=== PATIENT | male | born 1945 | race Caucasian/White ===

== ENCOUNTER 2019-03-30 14:04 | Inpatient (IN) ==
[2019-03-30] MEDS ORDERED: *HR* Atropine Sulfate 1 MG/10 ML SYRINGE ONE (14:30)
[2019-03-30] MEDS ORDERED: *HR* Midazolam HCl 2 MG/2 ML VIAL ONE (14:30)
[2019-03-30] MEDS ORDERED: ISOVUE-370 200 ML INFUS..BTL ONE (14:58)
[2019-03-30] MEDS ORDERED: 0.9 % Sodium Chloride 1,000 ML ONE (14:58)
--- NOTE | 2019-03-30 15:36 | Invasive Diagnostic Lab Proc ---
Name: Scooter Medina Date of Study: 03/30/2019 Date: 1945 Ht: 70.0in Medical Record#: [id number] Age: 73 Wt: 214.51lb Gender: Male BSA: 2.15 Order #: [id number] BMI: 30.78 Physicians Procedure Physician: Santana Umanzor MD Referring MD: Referring MD: Staff Name Position Time In ElvajoséAnuradha RN Monitor 02:24 PM Mike Hernandez RN Nurse 02:25 PM Toan Ma RN Social Security Specialist 02:25 PM Curry Encinas RT (R) Scrub 02:25 PM Indications Indication STEMI Procedures Performed Procedure L HRT ARTERY/VENTRICLE ANGIO PRQ CARD REVASC MN 1 VSL Pre-Procedure Checklist Informed consent is complete signed and on chart. H&P is on chart. ID band is on and ID verified with patient. Patient NPO for procedure The procedure was described for the patient and questions were answered. Blood Pressure: 136/72 ECG is on chart. Plan of Care Patient will tolerate the procedure without complications. Adequate level of comfort will be maintained. Hemodynamics will remain stable Patient will recover from procedure without complications. Respiratory function will be maintained. Cardiac rhythm will remain stable. Patient temperature will be maintained. Patient and/or family have verbalized understanding of the procedure. Patient Education Chief Complaint/Reason for Test: Cardiac Cath Developmental Category: Geriatric (65+ years) Developmentally Appropriate for Age: Yes Learning Barriers: None Education Needs: Procedure Education Method: Verbal Information Taught: Cardiac Cath Educational Evaluation: Able to repeat information Intravenous Access Time IV Size Location DC'd Fluid/Drip Rate Units RN 02:24 PM 18g 1 1/4" Patent On Arrival Lt Antecubital 0.9NaCl 100 ml/hr Toan Ma RN 02:24 PM 20g 1 1/4" Patent On Arrival Rt Arm Allergies No Known Allergies Vital Signs Time BP (mmHg) HR (bpm) O2 Sat. RR (bpm) LOC 02:24 PM 136 / 72 71 99 % 18 5 = Fully awake and oriented or at pre-proc level 02:37 PM / % 5 = Fully awake and oriented or at pre-proc level 02:37 PM / % 4 = Oriented but drowsy 02:53 PM / % 4 = Oriented but drowsy 02:40 PM 154 / 81 49 98 % 5 02:45 PM 143 / 74 58 99 % 16 02:50 PM 139 / 76 66 100 % 19 02:55 PM 141 / 70 61 100 % 12 03:00 PM 147 / 76 67 100 % 21 03:05 PM 147 / 75 53 100 % 22 03:10 PM 148 / 80 60 100 % 24 Procedural Medications Time Medication Dose Units Method Given By 02:37 PM Oxygen 2 L/min nasal cannula Toan Ma RN 02:40 PM Versed 2 mg Intravenous Toan Ma RN 02:41 PM Lidocaine 2% 10 ml Subcutaneous Santana Umanzor MD 02:49 PM Heparin 4000 units Intravenous Toan Ma RN 02:57 PM Nitroglycerin 200 mcg Intracoronary Santana Umanzor MD Mayra Score Preprocedure Postprocedure Activity 2- Moves 4 extremities sustained head lift Activity 2- Moves 4 extremities sustained head lift Circulation 2- SBP +/= 20 points of pre-anesthetic level Circulation 2- SBP +/= 20 points of pre-anesthetic level Consciousness 2- Awake and alert oriented x 3 Consciousness 2- Awake and alert oriented x 3 O2 Saturation 2- Able to maintain O2 satruation of 92% on room air O2 Saturation 2- Able to maintain O2 satruation of 92% on room air Respiratory 2- Able to deep breathe and cough well Respiratory 2- Able to deep breathe and cough well Total Score 10 Total Score 10 Contrast Agent: Isovue Diagnostic Contrast: 150 ml Total Contrast: 150 ml Fluoro Dose: 72 mGy Activated Clotting Time Time Seconds to Clot 02:45 PM 152 03:11 PM 207 Procedure Log Time Note Enter By 02:25 PM Anuradha Abebe RN Position: Monitor Time in: 14:24 daniejosé 02:25 PM Mike Hernandez RN Position: Nurse Time in: 14:25 [facility] 02:25 PM Toan Ma RN Position: Social Security Specialist [facility]: [facility] Curry Encinas RT (R) Position: Scrub Time in: 14:25 [facility] 02:25 PM Patient charges- Angio tray pack, Navilyst 3mm J, Pulse Oximetry and ACIST tubing and transducer 02:34 PM Pt arrived to section laborer 2 at 14:34 02:34 PM Meet and grezheng completed 02:34 PM Sign in performed according to hospital policy. Informed consent was obtained. mm 02:34 PM Procedure start 14:34 oumm 02:35 PM CathStat 02:37 PM Hair removed from procedure site in procedure lab using clippers. Bilateral groin prepped with Chloraprep by Toan Ma RN, then patient was draped. Skin intact. mm 02:37 PM Time: 14:37 Oxygen on at 2 L/min per nasal cannula by Toan Ma RN [facility]:37 PM Time: 14:37 Patient comfortable and pain free: Yes mm 02:37 PM Time: 14:37LOC: 5 = Fully awake and oriented or at pre-proc level 02:38 PM Clinical Presentation: STEMI or equivalent 02:39 PM Vitals capture started with the following parameters, Patient=Adult, Interval=5 min, Initial Ojogjupf=904 mmHg, Deflation Rate=5 mmHg, Cuff placed on Right Arm 02:40 PM HR=49 bpm, NOMC=119/81 mmhg, SpO2=98.0 %, Resp=5 B/min, EtCO2=29 mmHg 02:40 PM Time out was performed according to hospital policy. Conscious sedation and anesthesia was achieved (see medication log with in this report above) mm 02:40 PM Time: 14:40 Versed 2 mg Intravenous Given by Toan Ma RN 02:41 PM Recorded ECG: HR=54 Condition=Condition 1 02:42 PM Time: 14:41 10 ml Lidocaine 2% to right groin Subcutaneous Given by Santana Umanzor MD 02:42 PM Pressure channel 2 zeroed. 02:43 PM Access obtained by percutaneous puncture. 6Fr 10cm Terumo [place] sheath placed in right Femoral artery. [id number] mm 02:43 PM 0.035 145cm Navilyst 3mmJ wire [id number] mm 02:43 PM 6Fr FL 4 catheter inserted over the wire [facility] mm 02:43 PM wire removed 02:44 PM LCA angiography performed in multiple views. mm 02:45 PM HR=58 bpm, LJNM=599/74 mmhg, SpO2=99.0 %, Resp=16 B/min, EtCO2=35 mmHg 02:45 PM Recorded Pressure: Ao, HR=59, Condition=Condition 1 (Aorta) Ao 125/54/83 02:45 PM At 14:45 the ACT was 152 seconds. tsoummers 02:45 PM 4000 units of heparin adminsitered BEAN PICKER by [place] ED nurse tsoumm 02:46 PM 0.035 260cm Navilyst 3mmJ wire [id number] tsoummers 02:46 PM Catheter removed tsoumm 02:46 PM 6Fr JR 4 Runway guide catheter was used to cannulate the PCI vessel successfully. reused? No tsoummers 02:46 PM Inflation device was opened. tsoummers 02:47 PM wire removed tsoumm 02:47 PM RCA angiography performed in multiple views. tsoummers 02:48 PM Guide catheter removed intact. tsoummers 02:49 PM 6Fr JR 4 Runway guide catheter was used to cannulate the PCI vessel successfully. reused? No tsoummers 02:49 PM 1st guide catheter had kink tsoumm 02:49 PM Time: 14:49 Heparin 4000 units Intravenous Given by Toan Ma RN tsoumm 02:50 PM HR=66 bpm, WIVI=629/76 mmhg, GjC4=896.0 %, Resp=19 B/min, EtCO2=33 mmHg 02:50 PM Recorded Pressure: Ao, HR=56, Condition=Condition 1 (Aorta) Ao 128/52/81 02:52 PM Coronary Dominance: right tsoumm 02:52 PM Guide catheter removed intact. tsoumm 02:52 PM Sheath exchanged for a 6 Fr 23 cm Cordis Lacy sheath [id number] tsoummers 02:53 PM Time: 14:37LOC: 4 = Oriented but drowsy tsoummers 02:53 PM Time: 14:37 Patient comfortable and pain free: Yes tsoummers 02:55 PM HR=61 bpm, HJXI=381/70 mmhg, AcM9=330.0 %, Resp=12 B/min, EtCO2=32 mmHg 02:55 PM 6Fr JR 4 Runway guide catheter was used to cannulate the PCI vessel successfully. reused? No tsoummers 02:55 PM Recorded Pressure: Ao, HR=66, Condition=Condition 1 (Aorta) Ao 129/54/85 02:57 PM Lesion found in Distal RCA. Pre Stenosis: 95 Pre PARMINDER Flow: 3: Complete and Brisk Flow/Perfusion tsoummers 02:57 PM Right Coronary, Right Posterior Descending Arteries with Right Posterolateral and Acute Marginal branches with 95 % stenosis. If graft is supplying this area, 0 % stenosis tsoummers 02:57 PM Time: 14:57 Nitroglycerin 200 mcg Intracoronary Given by Santana Umanzor MD tsoummers 02:58 PM Recorded Pressure: Ao, HR=74, Condition=Condition 1 (Aorta) Ao 106/50/73 02:58 PM .014 Balance 300cm guide wire across target lesion- successful. reused? No tsoummers 03:00 PM HR=67 bpm, OKST=219/76 mmhg, DbU7=084.0 %, Resp=21 B/min, EtCO2=35 mmHg 03:00 PM 3.0mm x 12mm Synergy drug-eluting stent across target lesion- successful Lot #[id number] tsoummers 03:01 PM Stent deployed @ 13 мария for 30 seconds tsoummers 03:03 PM Recorded Pressure: Ao, HR=53, Condition=Condition 1 (Aorta) Ao 124/54/80 03:04 PM Stent delivery system removed intact. tsoummers 03:04 PM 3.0mm x 12mm Synergy drug-eluting stent across target lesion- successful Lot #[id number] tsoummers 03:05 PM Stent deployed @ 13 мария for 30 seconds tsoummers 03:05 PM HR=53 bpm, XBWT=738/75 mmhg, ViS9=289.0 %, Resp=22 B/min, EtCO2=34 mmHg 03:05 PM Lesion found in Proximal RCA. Pre Stenosis: 75 Pre PARMINDER Flow: 3: Complete and Brisk Flow/Perfusion tsoummers 03:06 PM Stent delivery system removed intact. tsoummers 03:06 PM Guide wire removed intact. tsoummers 03:06 PM Guide catheter removed intact. tsoummers 03:07 PM 5Fr Pigtail catheter inserted over the wire [facility] tsoummers 03:07 PM Catheter crossed the aortic valve and was selectively placed in the left ventricle. Pressures recorded on pullback for left heart catheterization. tsoummers 03:07 PM Bolus angiogram of left Ventricle complete: hand injection tsoummers 03:08 PM Recorded Pressure: LV, HR=68, Condition=Condition 1 (Left Ventricle) LV 125/13/26 03:08 PM Recorded Pressure: LV, HR=68, Condition=Condition 1 (Left Ventricle) LV 137/13/25 03:08 PM Time: 14:53 Patient comfortable and pain free: Yes tsoummers 03:08 PM Time: 14:53LOC: 4 = Oriented but drowsy tsoummers 03:08 PM Recorded Pressure: LV, Ao, HR=58, Condition=Condition 1 (Left Ventricle) LV 127/8/10, (Aorta) Ao 132/46/77 03:09 PM Catheter removed tsoummers 03:09 PM Procedure completed at 15:09 03/30/2019 tsoummers 03:09 PM Did you address PARMINDER flow and Dominance? Yes tsoummers 03:10 PM HR=60 bpm, GJMJ=397/80 mmhg, IuS8=667.0 %, Resp=24 B/min 03:10 PM Sign out completed: Radiation Dose 703.36 mGy, 72.1 Gy/cm2 Fluoro Time: 7.9 Isovue 370 - 200ml contrast 150 ml given by Santana Umanzor MD. Complications: None. The patient was discharged out of the medical laboratory technician in stable condition. Sedation minutes 30. Cardiac Rehab Consult needed: Yes. Confirmed administered medications: Yes tsoummers 03:10 PM Isovue 370 - 200ml,1 Bottle(s) used. tsoummers 03:10 PM Arterial sheath pulled, Perclose closure device used and was Successful [id number] S/N. tsoummers 03:10 PM Estimated Blood Loss: less than 20cc tsoummers 03:10 PM Post Blood Pressure 148/80 tsoummers 03:11 PM Information taught Cardiac Cath, PCI, and Perclose tsoummers 03:11 PM Education needs Procedure, Plan of Care, and Responsibilities of Patient in Care tsoummers 03:11 PM Learning barriers :None tsoummers 03:11 PM Education Methods Verbal tsoummers 03:11 PM Education evaluation Able to repeat information tsoummers 03:11 PM Site status No bleeding/hematoma - Rt Groin as reported by Curry Encinas RT (R) at 15:11 tsoummers 03:11 PM Opsite applied tsoummers 03:11 PM Plavix, Effient or Brilinta given No- 180 mg Brilinta administered in [place] [facility] BEAN PICKER oummers 03:11 PM At 15:11 the ACT was 207 seconds. tsmmers 03:11 PM Family placed in consult room. tsoummers 03:13 PM Post ECG Atrial Fibrillation mm 03:17 PM Report given to juan m TODD Pt taken to ICU Room #10. 15:17 tsoummers 03:21 PM Patient out of room: 15:21 tsoummers 03:22 PM Lesion found in Distal LMCA. Pre Stenosis: 20 Pre PARMINDER Flow: tsoummers 03:22 PM Lesion found in Proximal LAD. Pre Stenosis: 20 Pre PARMINDER Flow: tsoummers 03:22 PM Lesion found in 1st Marginal. Pre Stenosis: 60 Pre PARMINDER Flow: tsoummers 03:22 PM Left Main Coronary Artery with 20% stenosis tsoummers 03:22 PM Proximal Left Anterior Descending Coronary Artery with 20% stenosis. If graft is supplying this territory, 0 % stenosis. mmers 03:22 PM Circumflex, Obtuse Marginal, Left Posterior Descending, and Left Posterolateral Coronary Arteries with 60 % stenosis. If graft is supplying this area, 0 % stenosis tsmmers Complications Complication None Hemodynamics Pressures Site Systolic/A Wave Diastolic/V Wave Mean AO 125 54 83 AO 128 52 81 AO 129 54 85 AO 106 50 73 AO 124 54 80 LV 125 13 26 LV 137 13 25 LV 127 8 10 AO 132 46 77 Post Procedure Information Blood Pressure: 148/80 mmHg Rhythm: Atrial Fibrillation Post procedural instructions were given Closure Device Time Device Success/Fail 03/30/2019 3:10:00 PM Perclose ProGlide Successful Site Checks Time Location Status Staff Sheath In? Note 03:11 PM Rt Groin No bleeding/hematoma Curry Encinas RT (R) Pulses Updated by Anuradha Abebe RN on 03/30/2019 3:25:26 PM electronically signed on 03/30/2019 3:25:44 PM with status of Final
[2019-03-30] MEDS ORDERED: Acetaminophen 325 MG TABLET PO PRN (18:24)
[2019-03-30] MEDS ORDERED: Ondansetron 4 MG/2 ML VIAL IVP PRN (18:29)
--- NOTE | 2019-03-30 18:37 | Internal Med History&Physical ---
Date of Encounter: 03/30/19 Time of Encounter: 18:24 Internal Medicine - H&P: HPI Chief complaint: chest pain Admitted From: Home Plans for Post Hospital Care: Home History of present illness: Mr. Medina is a 73 year old male with past medical history of HTN, current 30 pack year smoker who presents with chest pain. {Pt's sons, sister-in law and another female family member where Pt states his about a week ago which has been stressful. Pt states he developed chest pain about 2am this morning. Reported slight SOB. Family stated he complained that he was sick to his stomach. He was recently prescribed antibiotic by his PCP for upper resp infection. Family history Mother MS and at 51 years old. Father HTN and from CVA when pt was 6 years old. In ED WBC 12.3, hgb 11.9, hct 36.0, plt 253 Na 136, 3.7, BUN 24, Cr 0.98. Troponin 1.02. Initial EKG showed: sinus rhythm, axis, intervals, QRS complexes, ST-T wave. Repeat EKG: demonstrated evidence of inferior MS with ST elevation in leads 2, 3 and aVF. Cardiology was notified and pt was transfered to [facility] for cardiac intervention. Chest x ray XR/XR chest 1V portable IMPRESSION: No acute cardiopulmonary process identified. CODE STATUS: FULL Past Med Surg Social Fam HX - Past Medical History Medical history: aortic aneurysm, coronary artery disease, hypertension, kidney stones, other (Chronic low back pain/sciatica) Additional medical history: lipids Psychiatric history: no psych history - Past Surgical History Surgical History: other (Ureteral stent) Additional surgical history: abdominal stent - Social History Smoking Status: Current every day smoker Smokeless Tobacco Status: No Alcohol use: none Drug use: none Internal Medicine - H&P: Meds Atenolol [Tenormin] 50 mg PO DAILY 03/30/19 [History] Azithromycin [Azithromycin 6-Tab Pack] 250 mg PO PER PKG DI 03/30/19 [History] GuaiFENesin Liq [Robitussin Liq] 200 mg PO Q6HR 03/30/19 [History] Valsartan/Hydrochlorothiazide [Diovan Hct 320-25 mg Tablet] 1 each PO DAILY 03/30/19 [History] amLODIPine [Norvasc] 10 mg PO DAILY 03/30/19 [History] Allergy/AdvReac Type Severity Reaction Status Date / Time No Known Allergies Allergy Verified 03/30/19 13:50 All Systems PM: A 10-system review of systems was performed and is negative for pertinent findings except as documented above in the HPI. - Constitutional Vitals: Temp Pulse Resp BP Pulse Ox 98 F 59 18 199/95 97 03/30/19 15:31 03/30/19 18:00 03/30/19 18:00 03/30/19 18:00 03/30/19 18:00 General appearance: Present: A&O X 3, no acute distress Exam: . - Head Head exam: Present: atraumatic, normocephalic - Eye Eye exam: Present: PERRL, conjuntiva pink, sclera anicteric Pupils: Present: PERRL - Neck Neck exam general surgery: Present: supple, trachea midline. Absent: lymphadenopathy - Respiratory Respiratory exam: Present: CTAB. Absent: accessory muscle use, rales, rhonchi, wheezes - Cardiovascular Cardiovascular exam: Present: RRR, +S1, +S2. Absent: diastolic murmur, gallop, rubs, systolic murmur - GI/Abdominal GI/Abdominal exam: Present: normal bowel sounds, soft, no peritoneal signs. Absent: distended, tenderness - Extremities Exam Extremities exam: Present: warm, radial pulses palpable and symmetrical. Absent: calf tenderness, cyanotic, pedal edema - Neurological Exam Neurological exam: Present: CN II-XII intact, oriented X3, no focal deficits. Absent: pronater drift, facial droop, speech deficit - Skin Skin exam: Present: dry, intact - Assessment and Plan (1) ST elevation myocardial infarction (STEMI) Current Visit: No Status: Acute Assessment and plan: Per cardiology "Cath completed RCA prox 75% mid distal 95 % ISAÍAS x 2 in distal and proximal segments. LCA 20% distal left main OM1 tubular 60% Perclose right groin. Brillinta given in er. recommend Start high dose statin dapt x 1 year continue meds" Continuing Brilinta 90 mg PO BID, ASA, BB, and Lipitor. Monitor HR closely while on BB Will check Echo. Qualifiers: Involved coronary artery: right coronary artery Qualified Code(s): I21.11 - ST elevation (STEMI) myocardial infarction involving right coronary artery (2) Essential hypertension Current Visit: Yes Status: Acute Assessment and plan: Cozaar, Norvasc, and Metoprolol (3) Current smoker Current Visit: Yes Status: Acute Assessment and plan: Cessation strongly advised. (4) Upper respiratory infection Current Visit: Yes Status: Acute Assessment and plan: Will need home antibiotic clarified and can resume. Qualifiers: Qualified Code(s): J06.9 - Acute upper respiratory infection, unspecified - Time Spent With Patient Total time spent is greater than 50% in coordination of care (as documented) at patient's floor/unit and/or counseling patient: less than 15 minutes
[2019-03-30] MEDS ORDERED: Naloxone 0.4 MG/ML INJ IVP PRN ×2 (18:45)
[2019-03-30] MEDS ORDERED: Perflutren Lipid Microsphere 1.3 ML in 0.9 % Sodium Chloride 8.7 ML IVP ONE (20:31)
[2019-03-30] MEDS: *HR* Ticagrelor 90 MG TABLET PO SCH (21:18)
[2019-03-31] MEDS ORDERED: *HR* Enoxaparin 40 MG/0.4 ML SYRINGE SQ SCH (06:00)
[2019-03-31] MEDS: *HR* Ticagrelor 90 MG TABLET PO SCH ×2 (08:27→19:56)
[2019-03-31] MEDS ORDERED: Aspirin 81 MG TAB.CHEW PO SCH (09:00)
[2019-03-31] MEDS ORDERED: amLODIPine 5 MG TABLET PO SCH (09:00)
[2019-03-31 09:39] LABS: Basophils % 0.3 %; Eosinophils # 0.2 K/mcL (0.0-0.6); Hematocrit 36.2 % (37.5-50.1); Hemoglobin 11.9 g/dL (12.9-16.9); Immature Granulocytes % 0.4 % (0-4); Lymphocytes # 1.9 K/mcL (0.6-4.6); Lymphocytes % 16.6 %; Mean Corpuscular HGB Conc 32.9 g/dL (31.6-35.5); Mean Corpuscular Hemoglobin 29.8 pg (28.0-33.3); Mean Corpuscular Volume 90.7 fL (83.0-100.0); Mean Platelet Volume 10.3 fL (9.4-12.4); Monocytes # 0.8 K/mcL (0.0-1.3); Monocytes % 6.7 %; Neutrophils # 8.5 K/mcL (1.6-8.9); Platelet Count 246 K/mcL (140-400); Red Blood Count 3.99 M/mcL (4.19-5.50); Red Cell Distribution Width 13.1 % (11.5-14.5)
[2019-03-31 09:47] LABS: BUN/Creatinine Ratio 22 (6-26); Blood Urea Nitrogen 19 mg/dL (8-23); Calcium 9.1 mg/dL (8.6-10.3); Carbon Dioxide 26 mEq/L (23-29); Chloride 102 mEq/L (98-107); Glucose 167 mg/dL (70-105); Osmolality,Calculated 288 (280-300); Potassium 4.2 mEq/L (3.5-5.1); Sodium 136 mEq/L (136-145); eGFR For Non-African Americans > 60 (> 60)
[2019-03-31 10:19] LABS: Platelet Estimate Normal (Normal)
--- NOTE | 2019-03-31 11:45 | Cardiology Progress Note ---
Date of Encounter: 03/31/19 Time of Encounter: 11:41 Assessment and Plan (1) ST elevation myocardial infarction (STEMI) Current Visit: No Status: Acute Acute inferior TX s/p PCI to the RCA with good results. No complication from procedure. Denies recurrent chest pain. TTE shows LVEF 60%. Mild left ventricular diastolic dysfunction. Definity echo contrast was used. Normal right ventricular structure and function. Mild mitral regurgitation. Mild tricuspid regurgitation. No pulmonary hypertension. Telemetry shows sinus bradycardia with multiple 2 second pauses and one 3 second pause. All seen during nocturnal hours. He did receive metoprolol 50 mg yesterday evening. Metoprolol held by nursing staff. HR now in the low 60's. He will be monitored today in ICU with possible step down to floor this afternoon if no recurrent bradycardia or pauses. We will restart low dose metoprolol at 12.5 mg BID. Importance of DAPT with asa and brilinta uninterrupted for minimum one year reviewed and he voiced understanding. Cardiac rehab ordered. Of note patient reports history of sleep apnea. He does not wear his c-pap as prescribed due to job demanding frequent waking at night. Encouraged to start using c-pap. Qualifiers: Involved coronary artery: right coronary artery Qualified Code(s): I21.11 - ST elevation (STEMI) myocardial infarction involving right coronary artery (2) Essential hypertension Current Visit: Yes Status: Acute B/p acceptable. Low sodium diet reviewed. (3) Current smoker Current Visit: Yes Status: Acute Smoking cessation. (4) Upper respiratory infection Current Visit: Yes Status: Acute Recent URI and antibiotics. No specific complaints at this time. No fever. Hospitalist following. Qualifiers: URI type: unspecified viral URI Qualified Code(s): J06.9 - Acute upper respiratory infection, unspecified Discussion w patient/family: The assessment and plan as outlined above was discussed with the patient and/or family members who expressed understanding and agreement. All questions were answered. Thank you for involving us in the care of your patient. Please call with any questions. Subjective Principal diagnosis: STEMI Interval history: Mr. Medina is sitting in his bedside chair. Denies chest pain. Noted to have bradycardia through the night and early AM. Denies dizziness or syncope. Objective Vital Signs, Last 4 Hours Temp Pulse Resp BP Pulse Ox 03/31/19 11:00 64 20 133/95 98 03/31/19 10:00 68 16 131/84 98 03/31/19 09:00 67 18 155/95 98 03/31/19 08:00 61 16 147/80 98 03/31/19 07:50 98.1 F General: Conversant, No Apparent Distress HEENT: Atraumatic, Normocephaly, Mucus Membranes Moist Neck: No JVD, Normal carotid pulses Cardiac: Reg Rate and Rhythm, Normal S1 and S2, No Murmur Lungs: Normal Breath Sounds, No Wheeze, Rales, Rhonchi Neuro: Alert and responsive, No focal deficits noted Abdomen: Soft, Non-Tender Skin: No rashes noted on visualized skin Musculoskeletal: No Chest Wall Tenderness Extremities: No Clubbing, No Cyanosis, No Edema, Normal Pulses Results 03/31/19 09:13 03/31/19 09:13 Lab Results 03/31/19 03/31/19 09:13 09:13 WBC 11.5 H Hgb 11.9 L Hct 36.2 L Plt Count 246 Sodium 136 Potassium 4.2 Chloride 102 Carbon Dioxide 26 BUN 19 Creatinine 0.86 Glucose 167 H Calcium 9.1 - Imaging and Cardiology Echo: report reviewed - EKG Interpretation EKG results cardiology: personally reviewed Consult Discharge Plan - Plan Referrals: Sean Hernandez, OYSTER PICKER [Primary Care Provider] -
--- NOTE | 2019-03-31 12:31 | Internal Med Progress Note ---
Hospitalist Progress Note - Encounter Date of Encounter: 03/31/19 Time of Encounter: 12:28 - Subjective Interval History: Patient was seen and examined. Transferred from [facility] due to a STEMI. Taken to Cath here and had 2 stents placed to RCA. Tele showed sinus libby and 2 secnd pauses and one 3 second pauses. All during night time and possibly during sleep. Asymptomatic. - Exam Vitals: Temp Pulse Resp BP Pulse Ox 98.7 F 64 20 133/95 98 03/31/19 11:47 03/31/19 11:00 03/31/19 11:00 03/31/19 11:00 03/31/19 11:00 Exam: GEN: NAD CVS: RRR. S1, S2, No m/r/g RESP: CTAB ABD: Soft, NT, ND, +BS EXT: No edema. 2+ DP. No rashes NEURO: Nonfocal - Assessment and Plan (1) ST elevation myocardial infarction (STEMI) Current Visit: No Status: Acute Assessment and Plan: c/w ASA/Brilinta for 1 year. c/w statin and lopressor. Due to bradycardia and sinus pauses, will keep one more day and can go to step down out of ICU today. (2) Essential hypertension Current Visit: Yes Status: Acute Assessment and Plan: c/w home meds (3) Current smoker Current Visit: Yes Status: Acute Assessment and Plan: Counseled. (4) Upper respiratory infection Current Visit: Yes Status: Acute Assessment and Plan: Start azithromax 250 mg. Was on Z-david. (5) DVT prophylaxis Current Visit: Yes Status: Acute Assessment and Plan: lovenox SQ. - Time Spent with Patient Total time spent is greater than 50% in coordination of care (as documented) at patient's floor/unit and/or counseling patient: Internal Medicine: Result - Labs CBC & Chem 7: 03/31/19 09:13 03/31/19 09:13 Labs: Short CBC 03/31/19 Range/Units 09:13 WBC 11.5 H (4.3-11.1) K/mcL Hgb 11.9 L (12.9-16.9) g/dL Hct 36.2 L (37.5-50.1) % Plt Count 246 (140-400) K/mcL Neutrophils # 8.5 (1.6-8.9) K/mcL BMP 03/31/19 09:13 Sodium 136 Potassium 4.2 Chloride 102 Carbon Dioxide 26 BUN 19 Creatinine 0.86 Glucose 167 H Calcium 9.1 - Impressions Impressions Echocardiogram 03/30/19 18:40 Impressions: LVEF 60%. Mild left ventricular diastolic dysfunction. Definity echo contrast was used. Normal right ventricular structure and function. Mild mitral regurgitation. Mild tricuspid regurgitation. No pulmonary hypertension. Left Ventricular Wall Motion: Rest Echo Findings All wall segments showed normal motion. Findings: Study Quality * Technically adequate exam. ECG Findings * Normal sinus rhythm. Left Ventricle * LVEF 60%. * Normal LV chamber size, wall thickness and function. * Mild left ventricular diastolic dysfunction. * Definity echo contrast was used. Right Ventricle * Normal right ventricular structure and function. Left Atrium * Normal left atrial size. Right Atrium * Normal right atrial size. Aortic Valve * Aortic valve not well visualized. * No aortic stenosis. * Trace aortic regurgitation. Mitral Valve * Normal mitral valve structure. * No mitral stenosis. * Mild mitral regurgitation. Tricuspid Valve * Tricuspid valve not well visualized. * Mild tricuspid regurgitation. * Estimated RA pressure is 3 mmHg. * Estimated RVSP is 33 mmHg. * No pulmonary hypertension. Pulmonic Valve * Pulmonic valve is not well visualized. * No pulmonic stenosis. * No pulmonic regurgitation. Pulmonary Artery * Pulmonary artery not well visualized. Aorta * Normally sized aortic root. Pericardium * There is no pericardial effusion present. Interatrial Septum * No evidence of PFO by color Doppler. IVC * Normal IVC dimensions and inspiratory collapse. Consult Discharge Plan - Plan Referrals: Sean Hernandez, STEAM AND POWER SUPERVISOR [Primary Care Provider] - (1) ST elevation myocardial infarction (STEMI) Qualifiers: Involved coronary artery: right coronary artery Qualified Code(s): I21.11 - S T elevation (STEMI) myocardial infarction involving right coronary artery (4) Upper respiratory infection Qualifiers: URI type: unspecified viral URI Qualified Code(s): J06.9 - Acute upper respiratory infection, unspecified
[2019-03-31] MEDS ORDERED: Azithromycin 250 MG TABLET PO SCH (12:45)
[2019-03-31] MEDS ORDERED: traZODone 50 MG TABLET PO PRN (15:40)
--- NOTE | 2019-03-31 15:52 | Electrocardiograph Report ---
[address] [place] [address] Test Date: 2019-03-30 Pat Name: Scooter Medina Department: 109 Room: 10 Gender: M Store Detective: : [id number] Requested By: Santana Umanzor Order Number: [id number] Reading MD: Alma Multani Measurements Intervals [place] Rate: 57 P: 17 MS: 192 QRS: 1 QRSD: 85 T: 2 QT: 415 QTc: 409 Interpretive Statements SINUS BRADYCARDIA POSSIBLE INFERIOR MYOCARDIAL INFARCTION, PROBABLY OLD Electronically Signed On 03-31-2019 15:51:39 EDT by Alma Multani
[2019-03-31] MEDS ORDERED: Naloxone 0.4 MG/ML INJ IVP PRN (16:34)
[2019-03-31] MEDS ORDERED: Ondansetron 4 MG/2 ML VIAL IVP PRN (16:34)
[2019-03-31] MEDS ORDERED: Acetaminophen 325 MG TABLET PO PRN (16:34)
[2019-03-31] MEDS: Azithromycin 250 MG TABLET PO SCH (18:39)
[2019-03-31] MEDS ORDERED: *HR* Atropine Sulfate 1 MG/10 ML SYRINGE ONE (20:43)
[2019-04-01 05:19] LABS: Basophils % 0.3 %; Eosinophils # 0.3 K/mcL (0.0-0.6); Eosinophils % 2.2 %; Hematocrit 37.3 % (37.5-50.1); Hemoglobin 12.1 g/dL (12.9-16.9); Immature Granulocytes % 0.5 % (0-4); Lymphocytes # 2.2 K/mcL (0.6-4.6); Lymphocytes % 17.4 %; Mean Corpuscular HGB Conc 32.4 g/dL (31.6-35.5); Mean Corpuscular Hemoglobin 29.4 pg (28.0-33.3); Mean Corpuscular Volume 90.8 fL (83.0-100.0); Mean Platelet Volume 10.5 fL (9.4-12.4); Monocytes # 1.3 K/mcL (0.0-1.3); Neutrophils # 8.7 K/mcL (1.6-8.9); Platelet Count 289 K/mcL (140-400); Red Blood Count 4.11 M/mcL (4.19-5.50); Segmented Neutrophils % 69.6 %
[2019-04-01 05:34] LABS: BUN/Creatinine Ratio 23 (6-26); Blood Urea Nitrogen 20 mg/dL (8-23); Calcium 9.1 mg/dL (8.6-10.3); Carbon Dioxide 26 mEq/L (23-29); Chloride 102 mEq/L (98-107); Glucose 130 mg/dL (70-105); Osmolality,Calculated 286 (280-300); Potassium 4.4 mEq/L (3.5-5.1); Sodium 136 mEq/L (136-145); eGFR For Non-African Americans > 60 (> 60)
[2019-04-01] MEDS ORDERED: *HR* Enoxaparin 40 MG/0.4 ML SYRINGE SQ SCH (06:00)
[2019-04-01] MEDS: Azithromycin 250 MG TABLET PO SCH (08:00)
[2019-04-01] MEDS: *HR* Ticagrelor 90 MG TABLET PO SCH (08:00)
[2019-04-01] MEDS ORDERED: Aspirin 81 MG TAB.CHEW PO SCH (09:00)
[2019-04-01] MEDS ORDERED: amLODIPine 5 MG TABLET PO SCH (09:00)
[2019-04-01 09:33] VITALS: BP 152/67
--- NOTE | 2019-04-01 10:05 | Discharge Summary ---
- NOTES TO OUTPATIENT PROVIDER Notes to Outpatient Provider: Seems to get apenic episodes. Needs outpatient sleep study referral Date of Encounter: 04/01/19 Time of Encounter: 10:04 - Discharge Diagnosis (1) ST elevation myocardial infarction (STEMI) Priority: Primary Status: Acute Qualifiers: Involved coronary artery: right coronary artery Qualified Code(s): I21.11 - ST elevation (STEMI) myocardial infarction involving right coronary artery (2) Essential hypertension Priority: Secondary Status: Acute (3) Current smoker Priority: Secondary Status: Acute (4) Upper respiratory infection Priority: Secondary Status: Acute Qualifiers: URI type: unspecified viral URI Qualified Code(s): J06.9 - Acute upper respiratory infection, unspecified Hospital course: Mr. Medina is a 73 year old male with past medical history of HTN, current 30 pack year smoker who presented with chest pain. Was transferred to us from [facility] due to inferior STEMI on EKG. Sent here to lab and had 2 stents placed to RCA. Was put on ASA/Brillinta. Was put on beta sana and a Statin. Was noted to get apnea episodes at night and recommended to get a sleep study as outpatient. Echo showed EF 60% and mild left ventricular diastolic dysfxn. Was discharged on 04/01 in a stable condition and is to follow up with cardiology. - Time Spent with Patient Total time spent providing and/or coordinating discharge services: Time spent: Greater than 30 minutes - Discharge Medications Prescriptions: New Ticagrelor [Brilinta] 90 mg PO BID 30 Days #60 tablet Atorvastatin [Lipitor] 80 mg PO HS 30 Days #30 tablet Aspirin [Lo-Dose Aspirin EC] 81 mg PO DAILY 30 Days #30 tablet. Metoprolol XL (24 HR) Succ [Toprol Xl] 25 mg PO DAILY 30 Days #30 tab.er.24h Continued Amlodipine Besylate 10 mg PO DAILY Tramadol HCl [Ultram] 50 mg PO BID PRN PRN Reason: Pain Trazodone HCl 100 mg PO HS PRN PRN Reason: Sleep Valsartan/Hydrochlorothiazide [Diovan Hct 320-25 mg Tablet] 1 each PO DAILY Discontinued Simvastatin [Zocor] 20 mg PO Q48H Azithromycin [Azithromycin 6-Tab Pack] 250 mg PO PER PKG DI Atenolol [Tenormin] 50 mg PO DAILY Home Medications: Amlodipine Besylate 10 mg PO DAILY 03/30/19 [History] Tramadol HCl [Ultram] 50 mg PO BID PRN 03/30/19 [History] Trazodone HCl 100 mg PO HS PRN 03/30/19 [History] Valsartan/Hydrochlorothiazide [Diovan Hct 320-25 mg Tablet] 1 each PO DAILY 03/30/19 [History] Aspirin [Lo-Dose Aspirin EC] 81 mg PO DAILY 30 Days #30 tablet.dr 04/01/19 [Rx] Atorvastatin [Lipitor] 80 mg PO HS 30 Days #30 tablet 04/01/19 [Rx] Metoprolol XL (24 HR) Succ [Toprol Xl] 25 mg PO DAILY 30 Days #30 tab.er.24h 04/01/19 [Rx] Ticagrelor [Brilinta] 90 mg PO BID 30 Days #60 tablet 04/01/19 [Rx] Allergies/Adverse Reactions: Allergy/AdvReac Type Severity Reaction Status Date / Time No Known Allergies Allergy Verified 03/30/19 13:50 Date of admission: 03/30/19 15:33 Primary care physician: Sean Hernandez DIRECTOR PHYSICAL THERAPY Consults: 03/30/19 18:20 Consult to Cardiac Rehabilitation-Phase1 [CONS] Routine Comment: Reason for Consult: Post cardiac cath Call Completed: No - Constitutional Vitals: Temp Pulse Resp BP Pulse Ox 98.1 F 68 16 152/67 99 04/01/19 07:54 04/01/19 09:00 04/01/19 09:00 04/01/19 09:00 04/01/19 09:00 General appearance: Present: A&O X 3, no acute distress Exam: GEN: NAD CVS: RRR. S1, S2, No m/r/g RESP: CTAB ABD: Soft, NT, ND, +BS EXT: No edema. 2+ DP. No rashes NEURO: Nonfocal - Patient Status Disposition: Home, Self-Care Condition: Fair Overall status at discharge: patient is progressing back to baseline - Discharge Instructions Instructions: Ticagrelor (By mouth), Myocardial Infarction (DC), Coronary Artery Disease (DC), How to Stop Smoking (DC), Coronary Intravascular Stent Placement (DC), Chronic Hypertension (DC), Cigarette Smoking and Your Health, Blow Mold Technician (GEN) Follow Up With: Sean Hernandez, DIRECTOR PHYSICAL THERAPY [Primary Care Provider] - Forms: Inpatient Work/School Release Additional Instructions: Need to get a sleep study outpatient - Diet and Activity Activity: increase activity as tolerated Diet: low salt diet
--- NOTE | 2019-04-01 12:08 | Cardiology Progress Note ---
Date of Encounter: 04/01/19 Time of Encounter: 09:00 Assessment and Plan (1) ST elevation myocardial infarction (STEMI) Status: Acute Acute inferior OK s/p PCI to the RCA with good results. No complication from procedure. Denies recurrent chest pain. TTE shows LVEF 60%. Mild left ventricular diastolic dysfunction. Definity echo contrast was used. Normal right ventricular structure and function. Mild mitral regurgitation. Mild tricuspid regurgitation. No pulmonary hypertension. Telemetry shows nocturnal sinus bradycardia. No recurrent pauses seen. Multiple 2 second pauses and one 3 second pause seen 4/3 during nocturnal hours. Toprol XL decreased to 25 mg daily. HR improved. Importance of DAPT with asa and brilinta uninterrupted for minimum one year reviewed and he voiced understanding. Continue bb and statin. Cardiac rehab ordered. Of note patient reports history of sleep apnea. He does not wear his c-pap as prescribed due to job demanding frequent waking at night. Encouraged to start using c-pap. Out-pt f/u will be scheduled. Activity restrictions reviewed. RISK FACTORS: STOP SMOKING: If you smoke, STOP. Smoking or tobacco use significantly increases your risk of heart disease because nicotine causes the arteries to narrow or constrict. It also causes fats to stick to the artery. Your chances of having a heart attack are greatly increased if you continue to smoke. For more information, call the education line for smoking cessation [id number]-[id number] EAT A LOW FAT/CHOLESTEROL/SODIUM DIET: This diet may help reduce your chances of having a heart attack. LIFTING: Avoid lifting anything more than 10 pounds for 5-7 days Prior to straining, laughing, sneezing and/or coughing, apply manual pressure directly over insertion site. ACTIVITY: You may walk or climb stairs as tolerated You can resume sexual activity as tolerated In general, you are encouraged to engage in a minimum of 30 minutes or more of moderate intensity physical activity, such as brisk walking, daily or at least 3-4 times weekly BATHING Do not submerge the site into water (bath tub, hot tub, swimming pool) for 1 week. This can be a source for infection into the blood stream. You may shower after 24 hours SITE CARE: After 24 hours, you may remove the dressing and leave the site open to air. Keep the site clean and dry. Clean gently and pat dry. You can expect bruising and tenderness that gradually resolve within a week or two. Return to work as instructed per your physician Resume driving as instructed per physician Keep all scheduled follow up appointments Resume medications as instructed IMPORTANT: If prescribed a Platelet Aggregation Inhibitor such as, Plavix, Brilinta or Effient: Duration of therapy is minimum one year These medications are often used in combination with Aspirin in prevention of future heart attacks Never discontinue unless consult with your Digital Pre Press Operator STROKE (CVA) Risk factors for a stroke are: Age, cigarette smoking, diabetes, excessive alcohol consumption, family history, high blood pressure, overweight, physical inactivity, prior stroke, heart attack, diagnosis of carotid artery stenosis or other artery disease. Warning signs: Sudden numbness or weakness of the face, arm or leg; especially on one side of the body, sudden confusion, trouble speaking or understanding, sudden trouble seeing in one or both eyes, sudden trouble walking, dizziness, loss of balance or coordination, sudden severe headache with no cause. Call 911 or go to the Emergency Room. CONGESTIVE HEART FAILURE: If you have been diagnosed with Congestive Heart Failure (CHF) and your symptoms return, make an appointment with your physician Weigh yourself daily. Notify your physician if you have a weight gain of two or more pounds in one day or five or more pounds in one week. If you experience any difficulty breathing, please call 911 BLEEDING: Although the risk of bleeding is minimal, it can happen. If you have any bleeding from the site, apply firm pressure above the puncture site for 10-15 minutes. If the bleeding does not stop, continue manual pressure and call 911 Contact your physician if: You develop a fever greater than 101 degrees Fahrenheit Your site becomes reddened or has any drainage You have an increase in pain or burning at the site or if a large knot forms at the site. If you experience chest pain, shortness of breath, dizziness, or extreme tiredness, stop the activity and rest. Please notify your physicians office if you experience any of these symptoms and they are not relieved by rest please call 911! Qualifiers: Involved coronary artery: right coronary artery Qualified Code(s): I21.11 - ST elevation (STEMI) myocardial infarction involving right coronary artery (2) Essential hypertension Status: Acute B/p acceptable. Low sodium diet reviewed. (3) Current smoker Status: Acute Smoking cessation. (4) Upper respiratory infection Status: Acute Recent URI and antibiotics. No specific complaints at this time. No fever. Hospitalist following. Qualifiers: URI type: unspecified viral URI Qualified Code(s): J06.9 - Acute upper respiratory infection, unspecified Discussion w patient/family: The assessment and plan as outlined above was discussed with the patient and/or family members who expressed understanding and agreement. All questions were answered. Thank you for involving us in the care of your patient. Please call with any questions. Subjective Principal diagnosis: STEMI Interval history: Mr. Medina is sitting in his bedside chair. Denies chest pain. Noted to have bradycardia through the night and early AM. Denies dizziness or syncope. Objective Vital Signs, Last 4 Hours Pulse Resp BP Pulse Ox 04/01/19 09:00 68 16 152/67 99 Results 04/01/19 04:00 04/01/19 04:00 Lab Results 04/01/19 04/01/19 04:00 04:00 WBC 12.5 H Hgb 12.1 L Hct 37.3 L Plt Count 289 Sodium 136 Potassium 4.4 Chloride 102 Carbon Dioxide 26 BUN 20 Creatinine 0.88 Glucose 130 H Calcium 9.1 Consult Discharge Plan - Plan Instructions: Ticagrelor (By mouth), Myocardial Infarction (DC), Coronary Artery Disease (DC), How to Stop Smoking (DC), Coronary Intravascular Stent Placement (DC), Chronic Hypertension (DC), Cigarette Smoking and Your Health, Maintainer Plant (GEN) Additional Instructions: Need to get a sleep study outpatient Referrals: Sean Hernandez, VARNISHER PLASTICOATER [Primary Care Provider] - Prescriptions: Ticagrelor [Brilinta] 90 mg PO BID 30 Days #60 tablet Atorvastatin [Lipitor] 80 mg PO HS 30 Days #30 tablet Aspirin [Lo-Dose Aspirin EC] 81 mg PO DAILY 30 Days #30 tablet. Metoprolol XL (24 HR) Succ [Toprol Xl] 25 mg PO DAILY 30 Days #30 tab.er.24h
[2019-04-02] MEDS ORDERED: Metoprolol XL (24 HR) Succ 25 MG TAB.ER.24H PO SCH (09:00)
== END 2019-04-01 10:44 | disposition home or self-care (01) | DRG 247 ==
LOC: SUATTDRO 15:33 → ICNU 15:33
PROVIDERS: ADMIT Internal Medicine Cardiovascular Disease; ATTEND Internal Medicine